=== PATIENT | female | born 1990 | race Caucasian/White ===

== ENCOUNTER 2020-11-06 11:28 | Emergency (ER) | payer OTHER ==
[~2020-11-06] VITALS: Ht 157.5 cm; Wt 73.9 kg
[2020-11-06 11:42] VITALS: Ht 157.5 cm; Wt 73.9 kg
[2020-11-06] MEDS ORDERED: IBU600 M2 PO (13:43)
[2020-11-06] MEDS ORDERED: ULTRAM50 MG PO (13:43)
[2020-11-06] MEDS ORDERED: FLE10 PO (13:43)
[2020-11-06 14:20] VITALS: BP 126/74
== END 2020-11-06 14:20 | disposition home or self-care (01) ==
LOC: ED 11:28
DX: M54.9 Dorsalgia, unspecified (principal)